=== PATIENT | female | born 1940 | race Caucasian/White ===

== ENCOUNTER 2021-12-17 17:44 | Emergency (ER) | payer MEDICARE, BC ==
[~2021-12-17] VITALS: Ht 165.1 cm; Wt 70.0 kg
[2021-12-17] MEDS ORDERED: ondansetron 4mg rapidly disintigrating tab PO ONE (18:35)
[2021-12-17] MEDS ORDERED: normal saline 1000ml 1,000 ML IV ONE (18:45)
[2021-12-17 19:38] LABS: COLOR,URINE YELLOW (Yellow); GLUCOSE, URINE NEGATIVE (Neg); KETONES,URINE 40 mg/dl (Neg); LEUKOCYTE ESTERASE ,URINE NEGATIVE (Neg); OCCULT BLOOD,URINE NEGATIVE (Neg); PH,URINE 5.5 (4.8-8.0); PROTEIN,URINE TRACE mg/dl (Neg); UROBILINOGEN,URINE 0.2 E.U/dL (0.2-1.0)
[2021-12-17 19:38] LABS: BASOPHILS % (AUTO) 0.2 % (0-1); EOSINOPHILS % (AUTO) 0.3 % (0-6); HEMATOCRIT 40.3 % (35.0-45.0); HEMOGLOBIN 13.6 g/dl (12.0-16.0); LYMPHOCYTES # (AUTO) 0.9 X10'3 (1.1-4.8); LYMPHOCYTES % (AUTO) 15.2 % (21-51); MEAN CORPUSCULAR HEMOGLOBIN 30.7 PG (27.0-31.0); MEAN CORPUSCULAR HGB CONC 33.9 g/dL (33.0-36.5); MEAN CORPUSCULAR VOLUME 90.8 FL (78-98); MEAN PLATELET VOLUME 8.1 FL (7.4-10.4); MONOCYTES # (AUTO) 0.5 X10'3 (0-0.9); MONOCYTES % (AUTO) 7.4 % (2-12); NEUTROPHILS # (AUTO) 4.8 X10'3 (1.8-7.7); NEUTROPHILS % (AUTO) 76.9 % (42-75); PLATELET COUNT 397 X10'3 (140-440); RED BLOOD COUNT 4.44 X10'6 (4.20-5.60); RED CELL DISTRIBUTION WIDTH 13.3 % (11.5-14.5); WHITE BLOOD COUNT 6.2 X10'3 (4.5-11.0)
[2021-12-17 19:49] LABS: UA COLLECTION TYPE NON-SPECIFIED
[2021-12-17 19:50] LABS: CLARITY,URINE SLIGHTLY CLOUDY (Clear); NITRITES, URINE NEGATIVE (Neg)
[2021-12-17 19:51] LABS: BACTERIA,URINE NONE SEEN /HPF (Neg); CAL OXALATE CRYSTALS 3+ /HPF (NEGATIVE); RBC,URINE 0-2 /HPF (0-2); SQUAMOUS EPITHELIAL CELL,UR FEW /LPF (FEW); WBC,URINE NONE SEEN /HPF (0-4)
[2021-12-17 19:59] LABS: ALANINE AMINOTRANSFERASE 17 U/L (12-78); ALBUMIN 3.4 G/DL (3.4-5.0); ALBUMIN/GLOBULIN RATIO 0.8 (1.1-1.5); ALKALINE PHOSPHATASE 101 IU/L (46-116); ANION GAP 10 (8-16); ASPARTATE AMINO TRANSFERASE 29 U/L (10-37); BILIRUBIN,TOTAL 0.4 MG/DL (0.1-1.0); BLOOD UREA NITROGEN 28 MG/DL (7-18); BUN/CREATININE RATIO 50.9 (6.6-38.0); CALCIUM 8.6 MG/DL (8.5-10.1); CHLORIDE 101 MMOL/L (99-107); CREATININE 0.55 MG/DL (0.40-0.90); POTASSIUM 3.4 MMOL/L (3.5-5.1); SODIUM 139 MMOL/L (135-145); TOTAL CARBON DIOXIDE 27.7 MMOL/L (24-32); TOTAL PROTEIN 7.9 G/DL (6.4-8.2); eGFR > 90 ML/MIN
[2021-12-17 20:02] LABS: GLUCOSE 114 MG/DL (70-104)
[2021-12-17 20:03] LABS: URINE AMPHETAMINE SCREEN NEGATIVE (Neg); URINE BARBITUATE SCREEN NEGATIVE (Neg); URINE BENZODIAZEPINES SCREEN NEGATIVE (Neg); URINE CANNABINOID SCREEN NEGATIVE (Neg); URINE COCAINE SCREEN NEGATIVE (Neg); URINE METHADONE SCREEN NEGATIVE (Neg); URINE OPIATE SCREEN NEGATIVE (Neg); URINE PHENCYCLIDINE SCREEN NEGATIVE (Neg)
[2021-12-17 20:04] LABS: MAGNESIUM 2.3 MG/DL (1.5-2.4)
[2021-12-17 20:07] LABS: ETHANOL < 0.010 GM/DL (0.0-0.010)
[2021-12-17] MEDS ORDERED: ONDA4TAB12 PO (20:47)
[2021-12-17 20:58] VITALS: BP 174/88
== END 2021-12-17 21:00 | disposition home or self-care (01) ==
LOC: ER 17:44
DX: R11.0 Nausea (principal); R44.1 Visual hallucinations; G25.71 Drug induced akathisia; G20 Parkinson's disease; Z88.8 Allergy status to other drugs, medicaments and biological substances; Z79.899 Other long term (current) drug therapy
CPT/HCPCS: 36415; 70450; 71045; 80053; 80305; 80320; 81001; 83605; 83735; 84145; 84443; 84484; 85025; 93005; 96360; 99285; J7030

== ENCOUNTER 2022-11-17 13:36 | Emergency (ER) | payer MEDICARE, BC ==
[~2022-11-17] VITALS: Ht 165.1 cm; Wt 58.6 kg
[~2022-11-17 13:36] MED LIST: ONDA4TAB12 PO
[2022-11-17 14:02] VITALS: BP 152/113
== END 2022-11-17 15:26 | disposition home or self-care (01) ==
LOC: ER 13:37
DX: L84 Corns and callosities (principal); G20 Parkinson's disease; Z88.5 Allergy status to narcotic agent; Z79.899 Other long term (current) drug therapy
CPT/HCPCS: 99282

== ENCOUNTER 2022-11-22 20:28 | Emergency (ER) | payer MEDICARE, BC ==
[~2022-11-22] VITALS: Ht 165.1 cm; Wt 58.6 kg
[2022-11-22 21:32] LABS: BASOPHILS % (AUTO) 0.1 % (0-1); EOSINOPHILS # (AUTO) 0.1 X10'3 (0-0.9); HEMATOCRIT 36.2 % (35.0-45.0); LYMPHOCYTES # (AUTO) 1.3 X10'3 (1.1-4.8); LYMPHOCYTES % (AUTO) 20.1 % (21-51); MEAN CORPUSCULAR HEMOGLOBIN 29.7 PG (27.0-31.0); MEAN CORPUSCULAR HGB CONC 33.2 g/dL (33.0-36.5); MEAN CORPUSCULAR VOLUME 89.3 FL (78-98); MEAN PLATELET VOLUME 7.4 FL (7.4-10.4); MONOCYTES # (AUTO) 0.5 X10'3 (0-0.9); MONOCYTES % (AUTO) 7.2 % (2-12); NEUTROPHILS # (AUTO) 4.6 X10'3 (1.8-7.7); NEUTROPHILS % (AUTO) 71.6 % (42-75); PLATELET COUNT 325 X10'3 (140-440); RED BLOOD COUNT 4.06 X10'6 (4.20-5.60); RED CELL DISTRIBUTION WIDTH 14.1 % (11.5-14.5); WHITE BLOOD COUNT 6.4 X10'3 (4.5-11.0)
[2022-11-22 21:43] LABS: ALBUMIN 3.5 G/DL (3.4-5.0); ALKALINE PHOSPHATASE 92 IU/L (46-116); ANION GAP 8 (8-16); BLOOD UREA NITROGEN 28 MG/DL (7-18); BUN/CREATININE RATIO 53.8 (6.6-38.0); CALCIUM 9.2 MG/DL (8.5-10.1); CHLORIDE 103 MMOL/L (99-107); CREATININE 0.52 MG/DL (0.40-0.90); LIPASE 83 U/L (73-393); POTASSIUM 3.6 MMOL/L (3.5-5.1); SODIUM 138 MMOL/L (135-145); TOTAL CARBON DIOXIDE 27.3 MMOL/L (24-32); eGFR > 90 ML/MIN
[2022-11-22 21:58] LABS: ALBUMIN/GLOBULIN RATIO 0.8 (1.1-1.5); ASPARTATE AMINO TRANSFERASE 21 U/L (10-37); BILIRUBIN,TOTAL 0.5 MG/DL (0.1-1.0)
[2022-11-22 22:00] LABS: ALANINE AMINOTRANSFERASE < 6 U/L (12-78); GLUCOSE 126 MG/DL (70-104)
[2022-11-22] MEDS ORDERED: ondansetron 4mg rapidly disintigrating tab PO ONE (22:35)
[2022-11-22] MEDS ORDERED: ONDA4TAB12 PO (23:09)
[2022-11-22 23:44] LABS: CLARITY,URINE CLOUDY (Clear); COLOR,URINE YELLOW (Yellow); GLUCOSE, URINE NEGATIVE (Neg); KETONES,URINE NEGATIVE (Neg); LEUKOCYTE ESTERASE ,URINE TRACE (Neg); NITRITES, URINE NEGATIVE (Neg); OCCULT BLOOD,URINE NEGATIVE (Neg); PH,URINE 7.5 (4.8-8.0); PROTEIN,URINE NEGATIVE (Neg); UROBILINOGEN,URINE 0.2 E.U/dL (0.2-1.0)
[2022-11-22 23:49] LABS: UA COLLECTION TYPE CLN CATCH MIDSTREAM
[2022-11-22 23:52] LABS: AMORPHOUS PHOSPHATES 4+; BACTERIA,URINE 1+ /HPF (Neg); RBC,URINE 0-2 /HPF (0-2); SQUAMOUS EPITHELIAL CELL,UR FEW /LPF (FEW); TRANSITIONAL EPI CELLS,URINE FEW /HPF
[2022-11-22] MEDS ORDERED: AMOX-117 PO (23:59)
[2022-11-23] MEDS ORDERED: amox tr/potassium clavulanate 875/125mg TAB PO ONE
[2022-11-23 00:18] VITALS: BP 154/86
== END 2022-11-23 00:20 | disposition home or self-care (01) ==
LOC: ER 20:28
DX: N30.00 Acute cystitis without hematuria (principal); R11.0 Nausea; G20 Parkinson's disease; Z88.5 Allergy status to narcotic agent; Z79.899 Other long term (current) drug therapy
CPT/HCPCS: 36415; 80053; 81001; 83690; 85025; 87077; 87088; 87186; 99283

== ENCOUNTER 2023-01-24 14:25 | Emergency (ER) | payer MEDICARE, BC ==
[~2023-01-24] VITALS: Ht 165.1 cm; Wt 59.1 kg
[2023-01-24 14:43] VITALS: BP 112/84
[2023-01-24 15:23] LABS: BASOPHILS % (AUTO) 0.3 % (0-1); EOSINOPHILS # (AUTO) 0.1 X10'3 (0-0.9); EOSINOPHILS % (AUTO) 0.9 % (0-6); HEMATOCRIT 36.5 % (35.0-45.0); HEMOGLOBIN 12.3 g/dl (12.0-16.0); LYMPHOCYTES % (AUTO) 17.7 % (21-51); MEAN CORPUSCULAR HEMOGLOBIN 30.5 PG (27.0-31.0); MEAN CORPUSCULAR HGB CONC 33.5 g/dL (33.0-36.5); MEAN PLATELET VOLUME 8.4 FL (7.4-10.4); MONOCYTES # (AUTO) 0.4 X10'3 (0-0.9); MONOCYTES % (AUTO) 7.6 % (2-12); NEUTROPHILS # (AUTO) 4.1 X10'3 (1.8-7.7); NEUTROPHILS % (AUTO) 73.5 % (42-75); PLATELET COUNT 260 X10'3 (140-440); RED BLOOD COUNT 4.02 X10'6 (4.20-5.60); RED CELL DISTRIBUTION WIDTH 14.6 % (11.5-14.5); WHITE BLOOD COUNT 5.6 X10'3 (4.5-11.0)
[2023-01-24 15:33] LABS: ALANINE AMINOTRANSFERASE 9 U/L (12-78); ALBUMIN 3.5 G/DL (3.4-5.0); ALKALINE PHOSPHATASE 78 IU/L (46-116); ANION GAP 7 (8-16); BLOOD UREA NITROGEN 33 MG/DL (7-18); BUN/CREATININE RATIO 54.1 (10.0-20.0); CALCIUM 8.9 MG/DL (8.5-10.1); CHLORIDE 105 MMOL/L (99-107); CREATININE 0.61 MG/DL (0.40-0.90); LIPASE 169 U/L (73-393); POTASSIUM 4.1 MMOL/L (3.5-5.1); SODIUM 140 MMOL/L (135-145); TOTAL CARBON DIOXIDE 27.6 MMOL/L (24-32); eGFR > 90 ML/MIN
[2023-01-24 15:39] LABS: ALBUMIN/GLOBULIN RATIO 0.8 (1.1-1.5); ASPARTATE AMINO TRANSFERASE 14 U/L (10-37); BILIRUBIN,TOTAL 0.4 MG/DL (0.1-1.0); GLUCOSE 122 MG/DL (70-104); TOTAL PROTEIN 7.8 G/DL (6.4-8.2)
== END 2023-01-24 18:00 | disposition left against medical advice (07) ==
LOC: ER 14:25
DX: R11.2 Nausea with vomiting, unspecified (principal); Z53.21 Procedure and treatment not carried out due to patient leaving prior to being seen by health care provider
CPT/HCPCS: 36415; 80053; 83690; 85025; 99281

== ENCOUNTER 2024-08-09 16:03 | Emergency (ER) | payer MEDICARE, BC ==
[~2024-08-09] VITALS: Ht 160 cm; Wt 63.2 kg
[~2024-08-09 16:03] MED LIST changes: +ONDA-243 PO; -ONDA4TAB12 PO
[2024-08-09] MEDS ORDERED: SULF1TAB45 PO (16:54)
[2024-08-09] MEDS ORDERED: [UNRECOGNIZED DRUG - CODE] PO (16:54)
[2024-08-09] MEDS ORDERED: ROPI3TAB21 PO (16:54)
[2024-08-09] MEDS ORDERED: DIPH25CA54 PO (17:36)
[2024-08-09] MEDS ORDERED: hydrocortisone cream TOP (17:36)
[2024-08-09 20:35] LABS: BASOPHILS % (AUTO) 0.1 % (0-1); EOSINOPHILS % (AUTO) 0.4 % (0-6); HEMATOCRIT 39.4 % (35.0-45.0); HEMOGLOBIN 13.3 g/dl (12.0-16.0); LYMPHOCYTES # (AUTO) 0.7 X10'3 (1.1-4.8); LYMPHOCYTES % (AUTO) 15.3 % (21-51); MEAN CORPUSCULAR HEMOGLOBIN 30.7 PG (27.0-31.0); MEAN CORPUSCULAR HGB CONC 33.8 g/dL (33.0-36.5); MEAN PLATELET VOLUME 7.8 FL (7.4-10.4); MONOCYTES # (AUTO) 0.3 X10'3 (0-0.9); MONOCYTES % (AUTO) 7.3 % (2-12); NEUTROPHILS # (AUTO) 3.6 X10'3 (1.8-7.7); NEUTROPHILS % (AUTO) 76.9 % (42-75); PLATELET COUNT 313 X10'3 (140-440); RED BLOOD COUNT 4.33 X10'6 (4.20-5.60); WHITE BLOOD COUNT 4.7 X10'3 (4.5-11.0)
[2024-08-09 20:53] LABS: ALANINE AMINOTRANSFERASE 10 U/L (12-78); ALBUMIN 3.8 G/DL (3.4-5.0); ALKALINE PHOSPHATASE 112 IU/L (46-116); ANION GAP 12 (8-16); BLOOD UREA NITROGEN 26 MG/DL (7-18); BUN/CREATININE RATIO 27.1 (10.0-20.0); CALCIUM 9.2 MG/DL (8.5-10.1); CHLORIDE 102 MMOL/L (99-107); CREATININE 0.96 MG/DL (0.40-0.90); POTASSIUM 4.2 MMOL/L (3.5-5.1); SODIUM 137 MMOL/L (135-145); TOTAL CARBON DIOXIDE 23.1 MMOL/L (24-32); eCRCL 37 ML/MIN; eGFR 56 ML/MIN
[2024-08-09 21:02] LABS: ALBUMIN/GLOBULIN RATIO 0.8 (1.1-1.5); ASPARTATE AMINO TRANSFERASE 21 U/L (10-37); BILIRUBIN,TOTAL 0.4 MG/DL (0.1-1.0); GLUCOSE 105 MG/DL (70-104); TOTAL PROTEIN 8.6 G/DL (6.4-8.2)
[2024-08-09 21:14] VITALS: PULSE 87
[2024-08-09 21:27] LABS: BILIRUBIN,URINE NEGATIVE (Neg); CLARITY,URINE CLEAR (Clear); COLOR,URINE YELLOW (Yellow); GLUCOSE, URINE NEGATIVE (Neg); KETONES,URINE TRACE mg/dl (Neg); LEUKOCYTE ESTERASE ,URINE NEGATIVE (Neg); NITRITES, URINE NEGATIVE (Neg); OCCULT BLOOD,URINE NEGATIVE (Neg); PROTEIN,URINE NEGATIVE (Neg); UROBILINOGEN,URINE 0.2 E.U/dL (0.2-1.0)
[2024-08-09 21:31] LABS: UA COLLECTION TYPE CLN CATCH MIDSTREAM
[2024-08-09] MEDS ORDERED: ONDA-243 PO (22:09)
[2024-08-09 23:31] VITALS: BP 176/68; RESP 18; TEMP 98.1; O2SAT 97
== END 2024-08-09 23:33 | disposition home or self-care (01) ==
LOC: ER 16:03
DX: R11.2 Nausea with vomiting, unspecified (principal); Z88.5 Allergy status to narcotic agent; Z79.899 Other long term (current) drug therapy
CPT/HCPCS: 36415; 80053; 81003; 84484; 85025; 93005; 99284